=== PATIENT | female | born 1955 | race Caucasian/White ===

== ENCOUNTER 2020-03-30 08:25 | Day surgery (SDC) | payer OTHER, SELFPAY ==
[2020-03-25 10:57] VITALS: BMI 20.1
--- NOTE | 2020-03-29 10:24 | P.CONAN_ITS ---
Documented by User: Hetal Lincoln 03/29/20 10:25 HPI - Anesthesia Eval Consult details Narrative: 64yo F for colonoscopy : ulc colitis [facility] Past Medical History Medical History Depression Elevated cholesterol Hx of ulcerative colitis Surgical History Surgical History History of femoral hernia repair History of open reduction and internal fixation (ORIF) procedure History of removal of retained hardware Hx of colonoscopy Social History Social History Are you a primary long term acute care registered nurse to a significant other at home: No Do you presently have visiting nurse or other home services: No Smoking Status: Former smoker Years Smoked: 35 Smoked in Last 30 Days: No Smoking Quit Date: 2016 Patient Interested in Nicotine Replacement: No Patient Given Instructions on How to Stop Smoking: No Second Hand Smoke Exposure: No Use of substances other than those prescribed or required for medical reasons: No Have you been hit, kicked, punched, or otherwise hurt by someone within the past year? If so, by whom?: No Advance Directives: No Advance Directives Information Provided: No Advance Directives on File: No Recently lost weight without trying: No Meds Allergies Allergy/AdvReac Type Severity Reaction Status Date / Time No Known Allergies Allergy Verified 03/25/20 10:54 Home Medications Medication Instructions Recorded Confirmed Type atorvastatin 10 mg PO DAILY 03/25/20 03/25/20 History calcium carbonate-vitamin D3 1 tab PO DAILY 03/25/20 03/25/20 History [Calcium + D] mesalamine [Apriso] 1.5 g PO QAM 03/25/20 03/25/20 History multivitamin 1 cap PO DAILY 03/25/20 03/25/20 History sertraline 50 mg PO DAILY 03/25/20 03/25/20 History Exam Exam Date and Time: March 29, 2020 1024 Height,Weight and Vital Signs: Height 5 ft 6 in Weight 56.699 kg Assessment and Plan Assessment Anesthesia Assessment: Chart Reviewed Documented by User: Judie Cruz 03/30/20 09:38 PMFSH Past Medical History Medical History Depression Elevated cholesterol Hx of ulcerative colitis Surgical History Surgical History History of femoral hernia repair History of open reduction and internal fixation (ORIF) procedure History of removal of retained hardware Hx of colonoscopy Social History Social History Are you a primary long term acute care registered nurse to a significant other at home: No Do you presently have visiting nurse or other home services: No Smoking Status: Former smoker Years Smoked: 35 Smoked in Last 30 Days: No Smoking Quit Date: 2016 Patient Interested in Nicotine Replacement: No Patient Given Instructions on How to Stop Smoking: No Second Hand Smoke Exposure: No Use of substances other than those prescribed or required for medical reasons: No Have you been hit, kicked, punched, or otherwise hurt by someone within the past year? If so, by whom?: No Advance Directives: No Advance Directives Information Provided: No Advance Directives on File: No Recently lost weight without trying: No Meds Allergies Allergy/AdvReac Type Severity Reaction Status Date / Time No Known Allergies Allergy Verified 03/25/20 10:54 Home Medications Medication Instructions Recorded Confirmed Type atorvastatin 10 mg PO DAILY 03/25/20 03/25/20 History calcium carbonate-vitamin D3 1 tab PO DAILY 03/25/20 03/25/20 History [Calcium + D] mesalamine [Apriso] 1.5 g PO QAM 03/25/20 03/25/20 History multivitamin 1 cap PO DAILY 03/25/20 03/25/20 History sertraline 50 mg PO DAILY 03/25/20 03/25/20 History Exam Airway Mallampati Class: II TM Dist: >3cm Neck ROM: Full
[2020-03-30 09:04] VITALS: BP 119/58; PULSE 60; RESP 16; TEMP 36.1; O2SAT 99
[2020-03-30] MEDS: Lactated Ringers 1,000 ML 100 ML IVCONT (09:04)
[2020-03-30 09:06] VITALS: BMI 20.1
--- NOTE | 2020-03-30 09:39 | MHC.SHP ---
Pre-Procedural Eval Section B Chief Complaint: Ulcerative Colitis Details of Present Illness: ulcerative colitis, see H&P no changes Relevant Family History (Specify if Yes): No Relevant Social History: None Present Medications: see Short Stay Collaborative assessment Medical History: No relevant PMH History of Previous Operations: No relevant previous surgery Allergies: Allergies Allergy/AdvReac Type Severity Reaction Status Date / Time No Known Allergies Allergy Verified 03/25/20 10:54 Plan Patient has been examined and remains a candidate for the planned procedure
[2020-03-30 10:09] VITALS: BP 85/48; PULSE 68; RESP 17; TEMP 36.7; O2SAT 100
--- NOTE | 2020-03-30 10:10 | PM.OP ---
Brief Operative Note Date of procedure: 03/30/20 Pre-op diagnosis: ulcerative colitis Post-op diagnosis: same Procedure: colonoscopy Surgeon: Vito Bridges Anesthesia: MAC Estimated blood loss (mL): 10 Pathology: other (terminal ielum and colon biopsies) Condition: stable Disposition: PACU
[2020-03-30 10:23] VITALS: BP 102/54; PULSE 68; RESP 17; O2SAT 99
[2020-03-30 10:27] VITALS: BP 108/66
--- NOTE | 2020-03-30 11:28 | HO.POSTANES ---
Post Anesthesia Evaluation Post Anesthesia Evaluation Vital Signs: Vital Signs Temp Pulse Resp BP Pulse Ox 03/30/20 10:27 108/66 03/30/20 10:23 68 17 102/54 L 99 03/30/20 10:09 98.1 F 68 17 85/48 L 100 03/30/20 09:04 96.9 F 60 16 119/58 L 99 Anesthesia: Monitored Mental Status: Awake Nausea/Vomiting: None Hydration: Adequate Anesthesia-Related Issues: No Anes. Related Issues
--- NOTE | 2020-05-24 21:09 | OP_ITS ---
SURGEON: Vito Bridges MD INDICATIONS: Ulcerative colitis, longstanding. PREOPERATIVE DIAGNOSIS: POSTOPERATIVE DIAGNOSIS: PROCEDURE PERFORMED: Colonoscopy to the terminal ileum with biopsy. ESTIMATED BLOOD LOSS: COMPLICATIONS: ANESTHESIA: ASSISTANTS: SPECIMENS: MEDICATIONS: Monitored anesthesia care. DESCRIPTION OF PROCEDURE: History and physical performed. The risks and benefits of the procedure were explained to the patient. Informed consent was obtained. The patient was placed in the left lateral decubitus position. A digital rectal exam was performed and was found to be normal. The Olympus pediatric video colonoscope was introduced into the rectum and advanced to the cecum without difficulty. The cecum was identified by transillumination, palpation, and identification of the ileocecal valve. Examination was performed and the scope was removed. She tolerated the procedure well, was returned to recovery area in stable condition. FINDINGS: The terminal ileum was normal. This was biopsied. There were changes of inactive colitis with scar tissue and pseudopolyp formation. The scar tissue was mainly present in the cecum and right colon with pseudopolyps extending from the cecum through the transverse colon and into the proximal descending colon between 40 and 30 cm. There was transition to more normal appearing colonic mucosa with a normal vascular pattern and no pseudo polyps or scar tissue. Biopsies were obtained throughout the colon. There appeared to be no evidence of active inflammatory changes. Retroflexed examination showed some small internal hemorrhoids. IMPRESSION: Ulcerative colitis. RECOMMENDATIONS: 1. Follow up the biopsy results. 2. Continue present regimen. MD JONATHAN Wiggins/YULY / [id number]
== END 2020-03-30 10:51 | disposition home or self-care (01) ==
PROVIDERS: PCP Physician Assistant; Visit Provider Internal Medicine Gastroenterology
PROC: 0DJD8ZZ Inspection of Lower Intestinal Tract, Via Natural or Artificial Opening Endoscopic (ICD-10-PCS; CPT 45378; principal; 2020-03-30 09:30)
DX: K51.90 Ulcerative colitis, unspecified, without complications (principal); E78.00 Pure hypercholesterolemia, unspecified; F32.9 Major depressive disorder, single episode, unspecified; Z79.899 Other long term (current) drug therapy
CPT/HCPCS: 45380; 88305